=== PATIENT | male | born 1990 | race African-American/Black ===

== ENCOUNTER 2016-03-11 20:47 | Emergency (ER) | payer OTHER ==
[~2016-03-11] VITALS: Ht 182.9 cm; Wt 65.8 kg
[~2016-03-11 20:47] MED LIST: AMOXICILLIN500 M2 PO; BLEPH-10 5 ML5 ML OS; LIDEX0.05 %/15 TOP; PREDNISONE20 M1 PO; TRAMADOL50 MG PO; VICODIN 5-3001 EACH PO
[2016-03-11 21:15] VITALS: BP 119/73
--- NOTE | 2016-03-11 21:48 | ED GI/GU/ABDOMINAL COMPLAINT ---
See Addendum History of Present Illness General Chief Complaint: Male Genitourinary Problems Stated Complaint: STD CHECK PARTNER HAS CHLAMYDIA Source: patient, old records Exam Limitations: no limitations Vital Signs & Intake/Output Vital Signs & Intake/Output Vital Signs Date Time Temp Pulse Resp B/P Pulse O2 O2 Flow FiO2 Ox Delivery Rate 03/11 2114 98.8 77 20 119/73 98 Room Air Allergies Coded Allergies: NO KNOWN ALLERGIES (07/22/15) Reconcile Medications Amoxicillin 500 MG CAPSULE 1 CAP PO TID STREP Prednisone 20 MG TABLET 2 TAB PO DAILY SWELLING Triage Note: RECEIVED 25 YO MALE HERE FOR STD CHECK-UP. PARTNER HAS A STD. Triage Nurses Notes Reviewed? yes Onset: Abrupt Duration: day(s): (1), constant Timing: single episode today Quality/Severity: no pain Severity Numbers: 1 Location: unknown Radiation: no radiation Sexually Active: Yes Last Time You Were Sexual: less than 2 months ago Sexual Orientation: Homosexual Use of Protection: No No Modifying Factors: none Associated Symptoms: deniess HPI: 25-year-old male presents to the emergency room for evaluation after he received news That they had tested positive for gonorrhea today he denies any symptoms no testicular pain or penile pain or discharge fever chills no urinary symptoms. He denies any rashes to his skin scrotal swelling abdominal pain nausea vomiting or diarrhea. There are no modifying factors or associated symptoms otherwise. (MARGARITA WEISS) Past History Travel History Traveled to [place] past 21 day No Medical History Any Pertinent Medical History? 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 No (MARGARITA WEISS) Review of Systems Review of Systems Constitutional: Reports: see HPI. All Other Systems: Reviewed and Negative Comments Review of systems: See HPI, All other systems negative. Constitutional, no chills no fever, no malaise HEENT: No visual changes no sore throat no congestion Cardiovascular: No chest pain , no palpitation Skin, no jaundice no rashes, no change in skin Respiratory: No dyspnea no cough no sputum GI: No nausea no vomiting, no diarrhea, : No dysuria Muscle skeletal: No joint pain, no back pain, no neck pain, Neurologic: No numbness no headache Psych: No stress Heme/endocrine: No bruising no bleeding Immunology: No lymphadenopathy (MARGARITA WEISS) Physical Exam Physical Exam General Appearance: well developed/nourished, no apparent distress, alert, awake Gastrointestinal: soft, non-tender Comments: Well-developed well-nourished patient in no apparent distress. HEENT: Atraumatic, extraocular motion intact Neck: Supple, FROM Back: FROM, Nontender Cardiovascular: Regular rate and rhythms no murmurs rubs or gallops, Respiratory: No respiratory distress. Patient speaking in full complete sentences. Breath sounds clear to auscultation bilaterally: NO W/R/R : Deferred Extremities: full range of motion Neuro: Alert and oriented x3 Skin: Warm & dry;No appreciable rash on exposed skin Psych: Mood affect normal, normal memory normal judgment. Core Measures ACS in differential dx? No Severe Sepsis Present: No Septic Shock Present: No (MARGARITA WEISS) Progress Differential Diagnosis: prostatitis, STD, urethritis, UTI/pyelo Plan of Care: Orders Procedure Date/time Status CHLAMYDIA-GC DNA PROBE 03/11 2134 Active Microbiology 03/11 2158 URINE ROUT: GC DNA Probe - RECD 03/11 2158 URINE ROUT: Chlamydia DNA Probe ([facility]) - RECD Initial ED EKG: none (MARGARITA WEISS) Departure Departure Time of Disposition: 2151 Disposition: HOME OR SELF CARE Condition: Stable Clinical Impression Primary Impression: Urethritis Referrals: GUIDO CONNORS MD (PCP/Family) Additional Instructions: You have been treated prophylactically for suspected sexually transmitted disease. Follow-up with your primary care physician return with any concerns. you will receive a call if the test is positive Departure Forms: Customer Survey General Discharge Information (MARGARITA WEISS) PA/SUPERVISOR SAMPLE Co-Sign Statement Statement: ED Attending supervision documentation- [] I saw and evaluated the patient. I have also reviewed all the pertinent lab results and diagnostic results. I agree with the findings and the plan of care as documented in the PA's/SUPERVISOR SAMPLE's documentation. [X] I have reviewed the ED Record and agree with the PA's/SUPERVISOR SAMPLE's documentation. [] Additions or exceptions (if any) to the PAs/SUPERVISOR SAMPLE's note and plan are summarized below: [] (ARA CHO,PRASAD Milton)
== END 2016-03-11 22:16 ==
LOC: ERH 20:47
DX: N34.2 Other urethritis (principal)
CPT/HCPCS: 87491; 87591; 96372; J0696

== ENCOUNTER 2016-04-15 10:07 | Emergency (ER) | payer OTHER ==
[~2016-04-15] VITALS: Ht 182.9 cm; Wt 68.0 kg
[2016-04-15 10:15] VITALS: BP 110/73
--- NOTE | 2016-04-15 10:33 | ED INFLUENZA/URI COMPLAINT ---
History of Present Illness General Chief Complaint: Upper Respiratory Sx/Fever Stated Complaint: PER PT FLU LIKE SYMPTOMS?, AND STREP THROAT Source: patient Exam Limitations: no limitations Vital Signs & Intake/Output Vital Signs & Intake/Output Vital Signs Date Time Temp Pulse Resp B/P Pulse O2 O2 Flow FiO2 Ox Delivery Rate 04/15 1015 100.1 85 20 110/73 95 Room Air Allergies Coded Allergies: NO KNOWN ALLERGIES (07/22/15) Reconcile Medications No Known Home Medications Triage Note: PT C/O FLU LIKE SYMPTOMS SINCE WEDNESDAY NIGHT. PT STATES SWEATING PROFUSELY. PT STATES SORE THROAT AND HEADACHE Triage Nurses Notes Reviewed? yes Onset: Gradual Duration: constant Timing: single episode today Severity: moderate Severity Numbers: 5 HPI: Patient is a 25-year-old male with a past medical history of recurrent pharyngitis last episode was approximately 2 months ago who presents to emergency room with a 3 to four-day history of sore throat fevers chills and similar symptoms to previous episodes. Denies any cough body aches. Denies any neck pain neck stiffness sinus pain or ear pain. Patient took Motrin prior to arrival. (MARGARITA PETERSON) Past History Travel History Traveled to [place] past 21 day No Medical History Any Pertinent Medical History? 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 No (MARGARITA PETERSON) Review of Systems Review of Systems Constitutional: Reports: see HPI, chills, fever. EENTM: Reports: throat pain, throat swelling. Respiratory: Reports: see HPI. Denies: cough. Cardiovascular: Reports: no symptoms. GI: Reports: no symptoms. Genitourinary: Reports: no symptoms. Musculoskeletal: Reports: no symptoms. Skin: Reports: no symptoms. Neurological/Psychological: Reports: no symptoms. Hematologic/Endocrine: Reports: no symptoms. Immunologic/Allergic: Reports: no symptoms. All Other Systems: Reviewed and Negative (MARGARITA PETERSON) Physical Exam Physical Exam General Appearance: no apparent distress, alert Ears, Nose, Throat: moist mucous membrane, hearing grossly normal, Tympanic normal, LEFT TONSILLAR SWELLING AND EXUDATES NOTED Lymphatic: no anterior cervical katrin Comments: Well-developed well-nourished person in no acute distress HEENT: , extraocular motion intact, no nystagmus. Pupils equally round and reactive to light and accommodation. Nose is atraumatic. External auditory canal and Tympanic membranes clear. Back: Nontender, no CVA tenderness. Cardiovascular: Regular rate and rhythms no murmurs rubs or gallops, normal JVP Respiratory: Chest nontender. No respiratory distress.breath sounds clear to auscultation bilaterally Abdomen: Soft, nontender nondistended, no appreciable organomegaly. Normal bowel sounds. No ascites Extremity: No edema, no calf tenderness to palpation, normal and equal pulses. Neuro: Alert oriented x3, motor sensory normal, Skin: No appreciable rash on exposed skin, skin is warm and dry. Psych: Mood and affect is normal, memory and judgment is normal. Core Measures Severe Sepsis Present: No Septic Shock Present: No (MARGRAITA PETERSON) Progress Differential Diagnosis: influenza, meningitis, neutropenia, otitis, pneumonia, pharyngitis, sinusitis Plan of Care: Current Medications Sig/Estrella Start time Last Medication Dose Stop Time Status Admin Acetaminophen 650 MG ONCE ONE 04/15 1045 AC (Tylenol) 04/15 1046 Due to history of present illness and exam findings patient will be treated for concerns of pharyngitis. No peritonsillar abscess or Rudy angina is of concern at this point. Patient was strongly advised to follow up with ENT for his recurrent pharyngitis (MARGARITA PETERSON) Initial ED EKG: none (MARGARITA PETERSON) Departure Departure Disposition: HOME OR SELF CARE Condition: Stable Clinical Impression Primary Impression: Pharyngitis Referrals: STEPHANIE CHO,JUSTIN CONNORS MD,GUIDO (PCP/Family) Additional Instructions: As discussed begin drinking plenty of water for hydration. Begin the prescription of Medrol Dosepak for inflammation and Augmentin for the full course and magic mouthwash for your symptoms. Prescriptions are waiting at [facility]. Begin [id number] Tylenol for fevers. Follow-up tomorrow with ear nose and throat DR. BROWN for further evaluation treatment. If symptoms worsen return to emergency room Departure Forms: Customer Survey General Discharge Information Prescriptions: Current Visit Scripts No Known Home Medications (MJ MARTINES,MARGARITA) PA/RAMPMAN Co-Sign Statement Statement: ED Attending supervision documentation- [] I saw and evaluated the patient. I have also reviewed all the pertinent lab results and diagnostic results. I agree with the findings and the plan of care as documented in the PA's/RAMPMAN's documentation. x I have reviewed the ED Record and agree with the PA's/RAMPMAN's documentation. [] Additions or exceptions (if any) to the PAs/RAMPMAN's note and plan are summarized below: [] (IVONNE CHO,PARMINDER)
== END 2016-04-15 10:53 ==
LOC: ERH 10:07
DX: J02.9 Acute pharyngitis, unspecified (principal); Z72.0 Tobacco use
CPT/HCPCS: 87804; 87804-59

== ENCOUNTER 2016-04-17 11:06 | Emergency (ER) | payer OTHER ==
[~2016-04-17] VITALS: Ht 182.9 cm; Wt 68.0 kg
[2016-04-17] MEDS ORDERED: AMOXICILLIN500 M2 PO (12:18)
[2016-04-17] MEDS ORDERED: PREDNISONE20 M1 PO (12:18)
[2016-04-17] MEDS ORDERED: MAGIC MOUTHWASH (12:19)
[2016-04-17] MEDS ORDERED: ACETAMINOPHEN500 M4 PO (12:19)
--- NOTE | 2016-04-17 12:56 | ED THROAT/DENTAL COMPLAINT ---
History of Present Illness General Chief Complaint: Sore Throat, Dental Pain Stated Complaint: SORE THROAT Source: patient Exam Limitations: no limitations Vital Signs & Intake/Output Vital Signs & Intake/Output Vital Signs Date Time Temp Pulse Resp B/P Pulse O2 O2 Flow FiO2 Ox Delivery Rate 04/17 1442 99.0 55 16 112/68 95 Room Air 04/17 1115 99.1 99 20 116/75 97 Room Air Allergies Coded Allergies: NO KNOWN ALLERGIES (07/22/15) Reconcile Medications Acetaminophen 500 MG TABLET 1-2 TAB PO Q6 PAIN/FEVER (Reported) Amoxicillin 500 MG CAPSULE 1 CAP PO TID PHARYNGITIS (Reported) Lidocaine HCl (Lidocaine HCl Viscous) 2 % SOLUTION 15 ML PO 4 TIMES/DAY sore throat swish, garggle and spit [MAGIC MOUTHWASH] SORE THROAT (Reported) Methylprednisolone. (Medrol) 4 MG TAB.DS.PK 1 DP PO AD tonsillitis 6 on day 1 then reduce by one tablet daily until gone Prednisone 20 MG TABLET 1 TAB PO DAILY PHARYNGITIS (Reported) Triage Note: PT JUST SEEN HERE FOR STREP THROAT AND STATES GIVEN ANTIBIOTICS AND STEROIDS BUT NOW ITS WORSE Triage Nurses Notes Reviewed? yes HPI: This patient is a 25-year-old male who presented to the emergency department today for evaluation of worsening sore throat. The patient reported that he was seen here in the emergency department on 04/15/2016 and diagnosed with strep throat. He was put on Augmentin and given a Medrol Dosepak as well as Magic mouthwash. He reported that the Magic mouthwash does not seem to be helping. He reported that his throat seems to be more swollen and with more, "cough." The patient reported that he has had fevers up to approximately 100F. He reported that he gets the chills. The patient denied any difficulty breathing or cough. He denied any chest pain. The patient reported that the pain is a 10 out of 10 and is worse with swallowing. The pain is nonradiating and constant. (STEPHANY BRENNAN,MANJEET) Past History Travel History Traveled to [place] past 21 day No Medical History Any Pertinent Medical History? 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 No (MANJEET HAMMOND PA-C) Review of Systems Review of Systems Constitutional: Reports: see HPI. EENTM: Reports: see HPI. Respiratory: Reports: no symptoms. Cardiovascular: Reports: no symptoms. GI: Reports: no symptoms. Genitourinary: Reports: no symptoms. Musculoskeletal: Reports: no symptoms. Skin: Reports: no symptoms. Neurological/Psychological: Reports: no symptoms. All Other Systems: Reviewed and Negative (MANJEET HAMMOND PA-C) Physical Exam Physical Exam Mouth/Throat: PHARYNGEAL INJECTION WITH LEFT-SIDED TONSILLAR EDEMA AND BILATERAL TONSILLAR DATES. nO MANDIBULAR OR MAXILLARY EDEMA. nO UVULAR SHIFT OR TRISMUS. nO DROOLING. nO DENTAL TENDERNESS. Comments: Well-developed well-nourished person in no acute distress HEENT: Head normocephalic, moist mucous membranes Pupils equally round and reactive to light. Nose is atraumatic. Neck: Supple with bilateral tonsillar and submandibular lymphadenopathy which is mildly tender to palpation. No midline tenderness Back: Normal gait Cardiovascular: Regular rate and rhythm with no murmurs Respiratory: No respiratory distress. Speaking in full sentences. Breath sounds clear to auscultation bilaterally with no wheezes, rales, or rhonchi. No stridor Extremity: Normal and equal pulses Neuro: Alert oriented x3, cranial nerves II through XII grossly intact. Skin: No appreciable rash on exposed skin, skin is warm and dry. Psych: Mood and affect is normal Core Measures ACS in differential dx? Yes Severe Sepsis Present: No Septic Shock Present: No (MANJEET HAMMOND PA-C) Progress Differential Diagnosis: epiglottitis, Ludwigs angina, meningitis, odontogenic abscess, taina-tonsillar abscess, pharyngeal for. body, stomatitis/gingivitis, strep pharyngitis Plan of Care: Orders Procedure Date/time Status CT NECK W IV CONTRAST 04/17 1244 Active COMPREHENSIVE METABOLIC PANEL 04/17 1243 Complete CBC WITHOUT DIFFERENTIAL 04/17 1243 Complete Laboratory Tests 04/17/16 1252: Anion Gap 11, Estimated GFR > 60, BUN/Creatinine Ratio 18.0, Glucose 114 H, Calcium 9.5, Total Bilirubin 0.6, AST 33, ALT 38, Alkaline Phosphatase 56, Total Protein 7.5, Albumin 4.2, Globulin 3.3, Albumin/Globulin Ratio 1.3, CBC w Diff NO MAN DIFF REQ, RBC 4.74, MCV 91.6, MCH 31.1 H, RDW 14.1, MPV 9.0, Gran % 59.5 , Lymphocytes % 24.6, Monocytes % 15.5 H, Eosinophils % 0, Basophils % 0.4, Absolute Granulocytes 2.8, Absolute Lymphocytes 1.2, Absolute Monocytes 0.7 H, Absolute Eosinophils 0, Absolute Basophils 0, PUBS MCHC 34.0 Comments: 04/17/2016 2:44:22 PM: As RN informed, The patient is signing out AMA. I was at the bedside to speak to the patient. 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 He reported that he is going to be coming back to the emergency room. I discussed possible airway complications with him if this is a peritonsillar abscess. He said he understands and left AMA. (MANJEET HAMMOND PA-C) Departure Departure Disposition: LEFT AGAINST MEDICAL ADVICE Condition: Stable Clinical Impression Primary Impression: Pharyngitis Referrals: PATIENT HAS NO PRIMARY CARE DR (PCP/Family) Departure Forms: Customer Survey General Discharge Information (MANJEET HAMMOND PA-C) PA/POULTRY HANGER Co-Sign Statement Statement: ED Attending supervision documentation- [] I saw and evaluated the patient. I have also reviewed all the pertinent lab results and diagnostic results. I agree with the findings and the plan of care as documented in the PA's/POULTRY HANGER's documentation. [X] I have reviewed the ED Record and agree with the PA's/POULTRY HANGER's documentation. [] Additions or exceptions (if any) to the PAs/POULTRY HANGER's note and plan are summarized below: [] (ANABELLA CHO,CY)
[2016-04-17 13:05] LABS: ABSOLUTE BASOPHIL COUNT 0 /CUMM (0.0-0.2); ABSOLUTE EOSINOPHIL COUNT 0 /CUMM (0.0-0.7); ABSOLUTE GRANULOCYTE CT 2.8 /CUMM (1.4-6.5); ABSOLUTE LYMPH COUNT 1.2 /CUMM (1.2-3.4); ABSOLUTE MONOCYTE COUNT 0.7 /CUMM (0.10-0.60); BASOPHIL % 0.4 % (0.0-2.0); EOSINOPHIL % 0 % (0-5); HEMATOCRIT 43.4 % (42-52); MEAN CORPUSCULAR HGB 31.1 PG (27.0-31.0); MEAN CORPUSCULAR VOLUME 91.6 FL (80.0-94.0); PLATELET COUNT 164 /CUMM (130-400); RBC DISTRIBUTION WIDTH 14.1 % (11.5-14.5); RED BLOOD CELL CT 4.74 /CUMM (4.70-6.10); WHITE BLOOD CELL COUNT 4.7 /CUMM (4.8-10.8)
[2016-04-17 13:07] LABS: GRANULOCYTE % 59.5 % (42.2-75.2)
[2016-04-17 14:42] VITALS: BP 112/68
--- NOTE | 2016-04-17 14:57 | CT SCAN REPORT ---
EXAMINATION: CT SOFT TISSUE NECK WITH CONTRAST CLINICAL INFORMATION: Throat pain and tonsillar edema. Assess for abscess. COMPARISON: None. TECHNIQUE: Following the intravenous administration of 93 mL of Optiray 320, helical imaging was performed in the axial plane with generation of coronal and sagittal reformatted images. The patient has a palpable area in the left neck, which was localized with a BB marker. DLP: 468.47 mGy-cm. FINDINGS: There are enlarged lymph nodes in the left level IIA and IIB regions, measuring up to 2 cm. The lowest is at the level of the BB marker. There is soft tissue fullness in the left lingual tonsil with foci of air. No discrete fluid collection is demonstrated. The adenoidal soft tissues are prominent. The parotid glands are homogeneous in attenuation. The submandibular glands are normal. The laryngeal structures are normal. The parapharyngeal fat is preserved. The carotid sheath vasculature opacifies normally. No extra mucosal soft tissue mass or fluid collection is seen. No retropharyngeal fluid collection is seen. The thyroid gland is normal in size. There is a 5 mm area of low attenuation in the posterior mid right lobe.. The superior mediastinum is unremarkable. The lung apices are clear. The mastoid air cells and visualized portions of the paranasal sinuses are well-aerated. The temporomandibular joints are normal. No periapical disease is identified. There are no acute osseous findings. The imaged portions of the brain parenchyma are unremarkable. IMPRESSION: 1. There is soft tissue fullness in the left lingual tonsil with foci of air, but no discrete fluid collection is demonstrated. The findings are consistent with tonsillitis. 2. There are enlarged lymph nodes in the left level II region as described above, which are likely reactive. 3. There is a 5 mm area of low attenuation in the right lobe of thyroid gland. This could be further assessed with nonemergent thyroid ultrasound.
[2016-04-17] MEDS ORDERED: MEDROL4 M2 PO (22:14)
[2016-04-17] MEDS ORDERED: LIDOCAINE HCL V15 ML PO (22:14)
== END 2016-04-17 14:44 ==
LOC: ERH 11:06
PROVIDERS: Physician Assistant
DX: J03.90 Acute tonsillitis, unspecified (principal); F17.210 Nicotine dependence, cigarettes, uncomplicated

== ENCOUNTER 2016-04-17 20:23 | Emergency (ER) | payer OTHER ==
[~2016-04-17] VITALS: Ht 182.9 cm; Wt 68.0 kg
[~2016-04-17 20:23] MED LIST changes: +ACETAMINOPHEN500 M4 PO; +MAGIC MOUTHWASH
[2016-04-17 21:00] VITALS: BP 119/77
--- NOTE | 2016-04-17 22:09 | ED GENERAL ADULT ---
History of Present Illness General Chief Complaint: General Adult Stated Complaint: PT WAS HERE ASHLEY FOR TEST AND LEFT Source: patient, friend Exam Limitations: no limitations Vital Signs & Intake/Output Vital Signs & Intake/Output Vital Signs Date Time Temp Pulse Resp B/P Pulse O2 O2 Flow FiO2 Ox Delivery Rate 04/174 Room Air 04/17 2100 99.8 92 18 119/77 96 Room Air ED Intake and Output 04/18 0000 04/17 1200 Intake Total Output Total Balance Patient 150 lb Weight Allergies Coded Allergies: NO KNOWN ALLERGIES (07/22/15) Reconcile Medications Acetaminophen 500 MG TABLET 1-2 TAB PO Q6 PAIN/FEVER (Reported) Amoxicillin 500 MG CAPSULE 1 CAP PO TID PHARYNGITIS (Reported) Lidocaine HCl (Lidocaine HCl Viscous) 2 % SOLUTION 15 ML PO 4 TIMES/DAY sore throat swish, garggle and spit [MAGIC MOUTHWASH] SORE THROAT (Reported) Methylprednisolone. (Medrol) 4 MG TAB.DS.PK 1 DP PO AD tonsillitis 6 on day 1 then reduce by one tablet daily until gone Prednisone 20 MG TABLET 1 TAB PO DAILY PHARYNGITIS (Reported) Triage Note: PT RETURNED TO ED FOR CT RESULTS. WAS SEEN 3 TIMES THIS WEEK FOR THROAT "INFECTION" HAD CT EALIER TODAY, COULD NOT STAY FOR RESULTS Triage Nurses Notes Reviewed? yes Onset: Gradual Duration: day(s): (4) Timing: remote history Injury Environment: home Severity: moderate Severity Numbers: 6 No Modifying Factors: none HPI: Patient is a 25-year-old male coming in because he left AGAINST MEDICAL ADVICE earlier. He left prior to CAT scan results. He was seen for sore throat has been gone for the past several days. He saw his primary care physician was started on Augmentin. He's been on it for almost 2 days with no improvement. Tactile fevers no chills or denies nausea vomiting. Denies trouble swallowing. He reports it is sharp when he does swallow. No sick contacts or recent travel.. (RAVINDER PRESTON) Past History Travel History Traveled to [place] past 21 day No Medical History Any Pertinent Medical History? 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 No (RAVINDER PRESTON) Review of Systems Review of Systems Constitutional: Reports: fever. Comments Review of systems: See HPI, All other systems negative. Constitutional, no weight loss HEENT: No visual changes Cardiovascular: No chest pain Skin, no jaundice no rashes Respiratory: No dyspnea cough sputum or hemoptysis GI: No nausea no vomiting : No dysuria No hematuria Muscle skeletal: no back pain, no neck pain, Neurologic: No numbness no aches Psych: No stress anxiety Immunology: No splenectomy or history of AIDS (RAVINDER PRESTON) Physical Exam Physical Exam General Appearance: well developed/nourished, no apparent distress, alert, awake , comfortable Comments: Well-developed well-nourished person in no acute distress HEENT: Pupils equally round and reactive to light and accommodation. Nose is atraumatic. External auditory canal and Tympanic membranes clear. Pharynx moderately erythematous, tonsillar enlargement bilaterally, uvula midline. White exudate bilaterally. Clearing secretions without difficulty. No trismus. No swelling or edema. Neck: Supple, mild anterior cervical lymphadenopathy which is nontender, normal range of motion without pain or tenderness Cardiovascular: Regular rate and rhythms no murmurs rubs or gallops, normal JVP Respiratory: Chest nontender. No respiratory distress.breath sounds clear to auscultation bilaterally Extremity: No edema Neuro: Alert oriented x3 Skin: No appreciable rash on exposed skin, skin is warm and dry. Psych: Mood and affect is normal, memory and judgment is normal. Core Measures ACS in differential dx? No CVA/TIA Diagnosis: No Severe Sepsis Present: No Septic Shock Present: No (RAVINDER PRESTON) Progress Differential Diagnoses I considered the following diagnoses in my evaluation of the patient: Tonsillitis, pharyngitis, peritonsillar abscess, strep, mono Plan of Care: pt given ct results which show tonsilitis. will continue augmentin, started on medrol dose pack and given viscous lidocaine. will follow up with ent. pt nontoxic. Initial ED EKG: none (RAVINDER PRESTON) Departure Departure Time of Disposition: 2212 Disposition: HOME OR SELF CARE Condition: Stable Clinical Impression Primary Impression: Acute tonsillitis Qualifiers: Pharyngitis/tonsillitis etiology: unspecified etiology Qualified Code: J03.90 - Acute tonsillitis, unspecified Referrals: CURRY EDWARDS MD PATIENT HAS NO PRIMARY CARE DR (PCP/Family) Additional Instructions: Continue with Augmentin. Take Medrol Dosepak. Increase fluids. Use viscous lidocaine help with sore throat. Return for worsening symptoms or concerns. Departure Forms: Customer Survey General Discharge Information Prescriptions: Current Visit Scripts Methylprednisolone. 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 I have also reviewed all the pertinent lab results and diagnostic results. I agree with the findings and the plan of care as documented in the PA's/ROCKET PROPELLANT PLANT SUPERVISOR's documentation. [x] I have reviewed the ED Record and agree with the PA's/ROCKET PROPELLANT PLANT SUPERVISOR's documentation. [] Additions or exceptions (if any) to the PAs/ROCKET PROPELLANT PLANT SUPERVISOR's note and plan are summarized below: [] (GREG CHO,MARK Ibrahim) Critical Care Note Critical Care Note Critical Care Time: non-applicable (RAVINDER PRESTON)
[2016-04-17] MEDS ORDERED: MEDROL4 M2 PO (22:14)
[2016-04-17] MEDS ORDERED: LIDOCAINE HCL V15 ML PO (22:14)
== END 2016-04-17 22:26 ==
LOC: ERH 20:23
DX: J03.90 Acute tonsillitis, unspecified (principal); F17.210 Nicotine dependence, cigarettes, uncomplicated

== ENCOUNTER 2017-02-24 21:54 | Emergency (ER) | payer SELFPAY ==
[~2017-02-24 21:54] MED LIST changes: +LIDOCAINE HCL V15 ML PO; +MEDROL4 M2 PO
[2017-02-24 21:59] VITALS: BP 118/80
--- NOTE | 2017-02-24 22:15 | ED THROAT/DENTAL COMPLAINT ---
History of Present Illness General Chief Complaint: General Adult Stated Complaint: BLISTERS UNDERNEATH TONGUE X3 WEEKS Source: patient, old records Exam Limitations: no limitations Vital Signs & Intake/Output Vital Signs & Intake/Output Vital Signs Date Time Temp Pulse Resp B/P B/P Pulse O2 O2 Flow FiO2 Mean Ox Delivery Rate 02/249 98.0 83 22 118/80 98 Room Air ED Intake and Output 02/25 0000 02/24 1200 Intake Total 0 Output Total Balance 0 Intake, Oral 0 Patient 160 lb Weight Allergies Coded Allergies: NO KNOWN ALLERGIES (07/22/15) Reconcile Medications Acetaminophen 500 MG TABLET 1-2 TAB PO Q6 PAIN/FEVER (Reported) Amoxicillin 500 MG CAPSULE 1 CAP PO TID PHARYNGITIS (Reported) Lidocaine HCl (Lidocaine HCl Viscous) 2 % SOLUTION 15 ML PO 4 TIMES/DAY sore throat swish, garggle and spit [MAGIC MOUTHWASH] SORE THROAT (Reported) Methylprednisolone. (Medrol) 4 MG TAB.DS.PK 1 DP PO AD tonsillitis 6 on day 1 then reduce by one tablet daily until gone Prednisone 20 MG TABLET 1 TAB PO DAILY PHARYNGITIS (Reported) Triage Note: per pt blisters under tongue x 3 weeks. pt eating dutch fries while being triaged and reports that the salt does not hurt. Triage Nurses Notes Reviewed? yes Onset: Abrupt Duration: week(s): (3), constant Timing: recent history Injury Environment: home Severity: mild Severity Numbers: 1 No Modifying Factors: none Associated Symptoms: denies HPI: 26-year-old male presents to ER for evaluation after he states he's had "blisters" in his mouth and under his tongue for the past 3 weeks. There is no pain he denies sick contacts fevers chills no sore throat no rhinorrhea congestion fever chills. He is not taken anything for his symptoms. No history of similar symptoms in the past no lip or tongue swelling. Past History Travel History Traveled to [place] past 21 day No Medical History Any Pertinent Medical History? 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 No Review of Systems Review of Systems Constitutional: Reports: see HPI. Comments Review of systems: See HPI, All other systems negative. Constitutional, no chills no fever, HEENT: no sore throat no congestion Cardiovascular: No chest pain , Skin: no rashes, no change in skin Respiratory: No dyspnea no cough no sputum GI: No nausea no vomiting, Muscle skeletal: No joint pain, no back pain Neurologic: , no headache Psych: No stress Heme/endocrine: No bruising Immunology: No lymphadenopathy Physical Exam Physical Exam General Appearance: well developed/nourished, no apparent distress, alert, awake Mouth/Throat: vesicular lesions Comments: Well-developed well-nourished patient in no apparent distress. Head/Face: Atraumatic, no facial swelling Eyes: PERRL, EOMI Ear:External auditory canal and Tympanic membranes clear, no erythema, no FB. Nose: atraumatic.Normal inspection: No bleeding, no septal hematoma Throat: Moist mucous membranes.neck: Fascicular lesions noted to the posterior pharynx, there is no vesicles noted to the lips or face. No pharyngeal erythema /exudate seen. No stridor/drooling or assymetry. No swelling or edema. Neck: Supple, no lymphadenopathy, FROM Back: FROM Cardiovascular: Regular rate and rhythms Respiratory: Chest nontender.There were no bony deformities, no asymmetry. No respiratory distress. Patient speaking in full complete sentences. Breath sounds clear to auscultation bilaterally: NO W/R/R Extremities: full range of motion Neuro: awake, alert, and oriented to person, place and time. There were no obvious focal neurologic abnormalities. Skin: Warm & dry;No appreciable rash on exposed skin Psych: Mood affect normal, normal memory normal judgment. Core Measures ACS in differential dx? No Sepsis Present: No Sepsis Focused Exam Completed? No Progress Differential Diagnosis: Ludwigs angina, odontogenic abscess, taina-tonsillar abscess, stomatitis/gingivitis, strep pharyngitis, coxsackie, mono, herpees, herpangina, candidida Plan of Care: I discussed with the patient at length plan of care. I had an extensive conversation regarding need for close follow up with their primary care physician this week as well as return precautions. I answered all of their questions, they feel comfortable with the plan and follow-up care. Departure Departure Time of Disposition: 2220 Disposition: HOME OR SELF CARE Condition: Stable Clinical Impression Primary Impression: Coxsackie virus disease Referrals: Patient Has No Primary Care Dr (PCP/Family) Additional Instructions: salt water gargles, tylenol or motrin for pain. follow up with your pmd Departure Forms: Customer Survey General Discharge Information
== END 2017-02-24 22:29 ==
LOC: ERH 21:54
DX: B34.1 Enterovirus infection, unspecified (principal)